=== PATIENT | male | born 1990 | race Caucasian/White ===

== ENCOUNTER 2016-09-27 15:46 | Emergency (ER) | payer OTHER ==
[~2016-09-27] VITALS: Ht 185.4 cm; Wt 89.4 kg
[2016-09-27 15:49] VITALS: TEMP 36.7; Ht 185.4 cm; Wt 89.4 kg
--- NOTE | 2016-09-27 17:09 | EMERGENCY ROOM VISIT NOTE ---
History Report prepared by Isa: Marilin Garcia Under the Supervision of: Dr. Jd Ortiz D.O. First contact with patient: 16:45 Chief Complaint: SHORTNESS OF BREATH Stated Complaint: HISTORY OF PNEUMOTHORAX Nursing Triage Summary: pt here for partial collapsed lung on right side has enlarged came from dr sahni office. having pain with breathing. hurts in chest and back when takes breath. coughed up blood a couple times. fell 3 stories last friday . History of Present Illness The patient is a 25 year old male who presents to the Emergency Room with complaints of worsening SOB starting JEWEL SORTER. He fell down 3 stories 1.5 weeks ago and has both lungs partially collapsed. He had a chest tube on his left side. He also suffered multiple fractures to the ribs and face, scapula and pelvis fracture, and C7 fracture. He had some bleeding in his brain. He was discharged from the hospital 2 days ago. His lungs were not completely healed at discharge. He was in the doctor's office today and the Xray showed that his right lung had worsened and was referred to the ED. He reports pain with breathing and back pain. He has some headache and ear pain which he attributes to his injuries. His foot swelling is normal since his fall. He denies any nausea, vomiting, or abdominal pain. He denies any other medical problems or previous surgeries. He admits to alcohol use. He denies any history of smoking. Source of History: patient Onset: JEWEL SORTER Position: other (global) Quality: other (SOB) Timing: worsening Associated Symptoms: + back pain, + headache, No abdominal pain, No nausea, No vomiting Note: Pt reports pain with breathing, ear pain. Review of Systems See HPI for pertinent positives & negatives. A total of 10 systems reviewed and were otherwise negative. Past Medical & Surgical Medical Problems: (1) Alcohol abuse (2) Cannabis Abuse-Unspec Family History No pertinent family history stated. Social History Smoking Status: Never Smoker Alcohol Use: occasionally Drug Use: marijuana Marital Status: single Current/Historical Medications Scheduled Acetaminophen Tab (Tylenol), 650 MG PO Q6 Aspirin (Aspirin), 325 MG PO DAILY Ciprofloxacin/Dexamethasone (Ciprodex 0.3-0.1 %), 4 DROPS OTL BID Docusate Sodium (Docusate Sodium), 1 CAP PO DAILY Gabapentin (Neurontin), 300 MG PO TID Ibuprofen (Advil), 600 MG PO Q6 Polyvinyl Alcohol (Akwa Tears), 2 DROPS OPL Q4 Prednisone (Prednisone), 20 MG PO TAPER UD Sennosides (Senokot), 1 TAB PO DAILY [Lubrifresh Pm], 0.25 INCH OPL HS Scheduled PRN Oxycodone Ir (Roxicodone Ir), 1-2 TAB PO Q4H PRN for Severe Pain Allergies Coded Allergies: No Known Allergies (Unverified , 03/16/11) Physical Exam Vital Signs Date Time Temp Pulse Resp B/P Pulse Ox O2 Delivery O2 Flow Rate FiO2 09/27/16 18:09 84 16 138/70 96 Room Air 09/27/16 15:49 36.7 68 18 121/70 98 Room Air Physical Exam GENERAL: Patient is awake, alert, and in no acute distress. Patient is resting comfortably and showing no signs of anxiety EYES: The conjunctivae are clear. The pupils are round and reactive. EARS, NOSE, MOUTH AND THROAT: The nose is without any evidence of any deformity. Mucous membranes are moist tongue is midline. Right TM is clear, left TM appears darkened with possible hemotympanum noted. NECK: The neck is nontender and supple. RESPIRATORY: Normal respiratory effort is noted there is no evidence of wheezing rhonchi or rales CARDIOVASCULAR: Regular rate and rhythm noted there no murmurs rubs or gallops normal S1 normal S2 GASTROINTESTINAL: The abdomen is soft. Bowel sounds are present in all quadrants. Abdomen is nontender BACK: No midline tenderness or or step-off noted range of motion in flexion extension as well as rotation no signs of muscle spasm noted MUSCULOSKELETAL/EXTREMITIES: There is no evidence of gross deformity full range of motion is noted in the hips and shoulders SKIN: There is no obvious evidence of any rash. There are no petechiae, pallor or cyanosis noted. NEUROLOGIC: Patient is awake alert and oriented x3 strength is symmetric patellar reflexes are 2+ bilaterally, left facial droop noted involving the forehead. Medical Decision & Procedures Laboratory Results 09/27/16 17:54 Red Blood Count 3.57, Mean Corpuscular Volume 90.2, Mean Corpuscular Hemoglobin 30.5, Mean Corpuscular Hemoglobin Concent 33.9, Mean Platelet Volume 8.8, Neutrophils (%) (Auto) 77.8, Lymphocytes (%) (Auto) 8.9, Monocytes (%) (Auto) 7.1, Eosinophils (%) (Auto) 0.8, Basophils (%) (Auto) 0.2, Neutrophils # (Auto) 10.13, Lymphocytes # (Auto) 1.16, Monocytes # (Auto) 0.93, Eosinophils # (Auto) 0.11, Basophils # (Auto) 0.02 09/27/16 17:54 Test 09/27/16 00:00 09/27/16 17:54 Urine Color YELLOW Urine Appearance CLEAR (CLEAR) Urine pH 6.5 (4.5-7.5) Urine Specific [place] 1.017 (1.000-1.030) Urine Protein NEG (NEG) Urine Glucose (UA) NEG (NEG) Urine Ketones NEG (NEG) Urine Occult Blood NEG (NEG) Urine Nitrite NEG (NEG) Urine Bilirubin NEG (NEG) Urine Urobilinogen NEG (NEG) Urine Leukocyte Esterase NEG (NEG) White Blood Count 13.03 K/uL (4.8-10.8) Red Blood Count 3.57 M/uL (4.7-6.1) Hemoglobin 10.9 g/dL (14.0-18.0) Hematocrit 32.2 % (42-52) Mean Corpuscular Volume 90.2 fL (80-100) Mean Corpuscular Hemoglobin 30.5 pg (25-34) Mean Corpuscular Hemoglobin Concent 33.9 g/dl (32-36) Platelet Count 305 K/uL (130-400) Mean Platelet Volume 8.8 fL (7.4-10.4) Neutrophils (%) (Auto) 77.8 % Lymphocytes (%) (Auto) 8.9 % Monocytes (%) (Auto) 7.1 % Eosinophils (%) (Auto) 0.8 % Basophils (%) (Auto) 0.2 % Neutrophils # (Auto) 10.13 K/uL (1.4-6.5) Lymphocytes # (Auto) 1.16 K/uL (1.2-3.4) Monocytes # (Auto) 0.93 K/uL (0.11-0.59) Eosinophils # (Auto) 0.11 K/uL (0-0.5) Basophils # (Auto) 0.02 K/uL (0-0.2) RDW Standard Deviation 48.9 fL (36.4-46.3) RDW Coefficient of Variation 15.0 % (11.5-14.5) Immature Granulocyte % (Auto) 5.2 % Immature Granulocyte # (Auto) 0.68 K/uL (0.00-0.02) Prothrombin Time 10.4 SECONDS (9.0-12.0) Prothromb Time International Ratio 1.0 (0.9-1.1) Activated Partial Thromboplast Time 27.5 SECONDS (21.0-31.0) Partial Thromboplastin Ratio 1.1 Anion Gap 8.0 mmol/L (3-11) Est Creatinine Clear Calc Drug Dose 145.0 ml/min Estimated GFR () 138.4 Estimated GFR (Non- 119.4 BUN/Creatinine Ratio 27.1 (10-20) Calcium Level 8.7 mg/dl (8.5-10.1) Total Bilirubin 0.4 mg/dl (0.2-1) Direct Bilirubin 0.1 mg/dl (0-0.2) Aspartate Amino Transf (AST/SGOT) 66 U/L (15-37) Alanine Aminotransferase (ALT/SGPT) 176 U/L (12-78) Alkaline Phosphatase 91 U/L (45-117) Total Protein 6.9 gm/dl (6.4-8.2) Albumin 3.3 gm/dl (3.4-5.0) Lipase 72 U/L (73-393) Laboratory results per my review. ED Course 1645: The patient was evaluated in room A4B. A complete history and physical examination were performed. 1729: I discussed the patient's case [place]. [place] [facility] [place] He will evaluate the patient. 1744: I reevaluated the patient. I updated him and his family on the plan. Dr. Olivo will evaluate the patient. 1756: Dr. Olivo has evaluated the patient. He believes the patient can be discharged home. 1804: Upon reevaluation, the patient is doing well. I discussed the results and treatment plan with him and his family. They verbalized agreement of the treatment plan. He was discharged home. Medical Decision Prior records/ancillary studies reviewed. Triage Nursing notes reviewed. Additional history obtained from the family. The patient's history was concerning for respiratory difficulties. Differential diagnosis: Etiologies such as infections, reactive airway disease, pneumonia, pneumothorax , COPD, CHF, cardiac ischemia, pulmonary embolism, musculoskeletal, gastrointestinal, as well as others were entertained. The patient is a 25-year-old male who presented to the emergency department with his parents for an evaluation of pneumothorax. The patient was seen at a trauma center in [place] approximate 10 days ago after a fall from a third story balcony. The patient suffered multiple traumatic injuries including intracranial bleeding as well as skull fracture facial nerve palsy traumatic pneumothorax and other bony injuries. The patient follow-up with his primary care physician today and had a chest x-ray which did reveal persistent pneumothorax bilaterally. His primary care physician was concerned because the a slight increase in the size of the pneumothorax compared to his discharge x- rays. He was sent to the emergency apartment for further evaluation. The patient 's vital signs reviewed. He did not have hypoxia. The patient was evaluated in the emergency department by the on-call cardiothoracic surgeon. At this time I feel the patient can safely follow up as an outpatient next week. At that time he will likely require repeat chest x-ray to ensure the pneumothorax is resolving. He was advised to limit traveling. He was also encouraged to follow- up with his primary care physician as well as the cardiothoracic surgery scheduled. He was also encouraged to return to the emergency department immediately if symptoms change worsen or the need arises. Consults Time Called: 171 Consulting Physician: Dr. Olivo, [facility] [place] Returned Call: [phone] I discussed the patient's case with him. He will evaluate the patient. Impression Primary Impression: Traumatic pneumothorax Scribe Attestation The scribe's documentation has been prepared under my direction and personally reviewed by me in its entirety. I confirm that the note above accurately reflects all work, treatment, procedures, and medical decision making performed by me. Departure Information Dispostion Home / Self-Care Referrals Shahid Sahni D.O.Int.Arik. Charlie Olivo MD Forms HOME CARE DOCUMENTATION FORM, IMPORTANT VISIT INFORMATION Patient Instructions My [facility], Pneumothorax Additional Instructions Continue all medications as prescribed. Rest and avoid any strenuous activity. Follow-up with the cardiothoracic surgeon next Friday as scheduled. Return to the emergency department immediately if symptoms change worsen or the need arises. Problem Qualifiers Primary Impression: Traumatic pneumothorax Encounter type: subsequent encounter Qualified Codes: S27.0XXD - Traumatic pneumothorax, subsequent encounter
[2016-09-27] MEDS ORDERED: ASPI325T45 PO (17:24)
[2016-09-27] MEDS ORDERED: GABA-113 PO (17:24)
[2016-09-27] MEDS ORDERED: PRED20TA PO (17:24)
[2016-09-27] MEDS ORDERED: IBUP-1050 PO (17:24)
[2016-09-27] MEDS ORDERED: SENN-63 PO (17:24)
[2016-09-27] MEDS ORDERED: DOCU100C31 PO (17:24)
[2016-09-27] MEDS ORDERED: CPRDOTS OTL (17:24)
[2016-09-27] MEDS ORDERED: LUBRIFRESH PM OPL (17:24)
[2016-09-27] MEDS ORDERED: OXYC1TAB3 PO (17:24)
[2016-09-27] MEDS ORDERED: ACET325T96 PO (17:24)
[2016-09-27] MEDS ORDERED: POLYSOL OPL (17:24)
[2016-09-27 18:05] LABS: HEMATOCRIT 32.2 % (42-52); MEAN CELL VOLUME 90.2 fL (80-100); MEAN CORPUSCULAR HEMOGLOBIN 30.5 pg (25-34); MEAN CORPUSCULAR HGB CONC 33.9 g/dl (32-36); MEAN PLATELET VOLUME 8.8 fL (7.4-10.4); PLATELET COUNT 305 K/uL (130-400); RED BLOOD COUNT 3.57 M/uL (4.7-6.1); WHITE BLOOD COUNT 13.03 K/uL (4.8-10.8)
[2016-09-27 18:09] VITALS: BP 138/70; PULSE 84; O2SAT 96
[2016-09-27 18:14] LABS: PARTIAL THROMBOPLASTIN RATIO 1.1; PROTHROMBIN TIME (PATIENT) 10.4 SECONDS (9.0-12.0)
[2016-09-27 18:26] LABS: BUN/CREATININE RATIO 27.1 (10-20); CALCIUM 8.7 mg/dl (8.5-10.1); CREATININE 0.88 mg/dl (0.60-1.40); POTASSIUM 4.5 mmol/L (3.5-5.1)
[2016-09-27 18:28] LABS: BASO % 0.2 %; BASO ABS # 0.02 K/uL (0-0.2); COMPLETE YES; EOS % 0.8 %; IG% 5.2 %; LYMPH % 8.9 %; LYMPH ABS # 1.16 K/uL (1.2-3.4); MONO % 7.1 %; NEUT % 77.8 %
[2016-09-27 18:39] LABS: URINE APPEARANCE CLEAR (CLEAR); URINE BILIRUBIN NEG (NEG); URINE COLOR YELLOW; URINE NITRITE NEG (NEG); URINE PH 6.5 (4.5-7.5); URINE SPECIFIC GRAVITY 1.017 (1.000-1.030); UROBILINOGEN NEG (NEG)
[2016-09-27 18:42] LABS: MANUAL MICROSCOPIC REQUIRED? NO; REVIEW REQ? NO
--- NOTE | 2016-09-28 02:48 | SURGICAL CONSULTATION ---
DATE OF CONSULTATION: 09/27/2016 HISTORY OF PRESENT ILLNESS: Mr. Abraham is a 25-year-old male who fell out of a third sawyer balcony about 10 days ago down in [place], [place]. He had no other medical problems except that he does drink and does use marijuana on occasion. He suffered a small subarachnoid hemorrhage. He also broke his temporal bone and has a facial nerve palsy on the left. His parents just picked him up in [place] yesterday and drove him home and got back last night. His mother was concerned about him because she wanted him to see a physician for continuity of care and he was taken to see Dr. Shahid Sahni, today. He had had a chest tube for some rib fractures and also had a C7 fracture. As he had a pneumothorax, it was elected to send him over to the Emergency Room. He denies shortness of breath, per se. His pulse oximetry is 98% on room air. He does have some headaches and some left ear pain. He also had some left foot swelling, but he says that it is fine but it appeared to be bilateral trace edema. PAST MEDICAL HISTORY: 1. Alcohol use. 2. Marijuana use. 3. Does not smoke cigarettes. PAST SURGICAL HISTORY: None. ALLERGIES TO MEDICATIONS: None. ALLERGIES: No known drug allergies. SOCIAL HISTORY: The patient's parents live here in [place], [place]. He actually spent the majority of his youth in [facility] and graduated from high school there. He did not apparently attend college. 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 FAMILY MEDICAL HISTORY: His parents are healthy. REVIEW OF SYSTEMS: The patient does have headaches on occasion. He has had some mild edema. He denies shortness of breath and has had no dyspnea, although he does have pain if he takes a deep breath and has some back pain. He had C7 fracture, pelvis fracture and had fractures of his ribs as well as his left temporal bone. He has had no other skin breakdown. He has had no visual problems. He does have ear pain but no decrease in hearing acuity. He denied nausea, vomiting and hematuria. PHYSICAL EXAMINATION: GENERAL: This is a well-developed, well-nourished male who stands 6 feet 1 inches tall and weighs 197 pounds. He is awake and alert. HEENT: He does have an obvious left facial paralysis. His pupils are equally round. He has no icterus. His tongue is midline. His oral mucosa is moist. NECK: Supple. He really does not have much tenderness, although I did not have him too much for range of motion. He has had no adenopathy. His breath sounds are actually pretty good on both sides. He has some tenderness but no real crepitus. VITAL SIGNS: As stated, his vital signs are stable with a pulse rate in the 60s, respiration rate in the teens and a pulse oximetry of 98% on room air. I reviewed his chest x-ray and indeed he does have a small pneumothorax on the left with a small effusion. On the right, he does have a larger pneumothorax, but really he had had a chest tube on the left, so I am really not concerned about that and quite frankly I am not very concerned about the size of the pneumothorax on the right either. The patient is very stable. I told his parents to call me over the weekend should any problems arise. I think he is going to heal this on his own. He has had no clinical changes quite frankly within the last several days. I will see him back with a chest x-ray on 10/01/2016. I have instructed his parents to call me should a problem arise. BERNABE
== END 2016-09-27 18:50 | disposition home or self-care (01) ==
LOC: C.EDB 15:48 → C.EDA 18:50
DX: S27.0XXD Traumatic pneumothorax, subsequent encounter (principal); W17.89XD Other fall from one level to another, subsequent encounter; F12.10 Cannabis abuse, uncomplicated; Z79.82 Long term (current) use of aspirin; Z79.899 Other long term (current) drug therapy

== ENCOUNTER → 2016-09-27 | Outpatient (CLI) | payer OTHER ==
[~2016-09-27] MED LIST: ACET325T96 PO; ASPI325T45 PO; CPRDOTS OTL; DOCU100C31 PO; GABA-113 PO; IBUP-1050 PO; LUBRIFRESH PM OPL; OXYC1TAB3 PO; POLYSOL OPL; PRED20TA PO; SENN-63 PO
--- NOTE | 2016-09-27 14:48 | DIAGNOSTIC IMAGING REPORT ---
TWO VIEW CHEST CLINICAL HISTORY: Pneumothorax. FINDINGS: PA and lateral chest radiographs are obtained. No prior studies are available for comparison at the time of dictation. The cardiomediastinal silhouette is unremarkable. There is a small to moderate right apical pneumothorax with at least 3 cm of apical pleural separation. A trace left apical pneumothorax is also seen with approximately 1 cm of apical pleural separation. There is a distracted right first rib fracture. The remainder of the bony thorax is grossly intact. IMPRESSION: 1. Small to moderate right and trace left apical pneumothoraces. 2. Small left pleural effusion. 3. There is a distracted right first rib fracture. Findings were discussed with physician Asst. Gold at the time of interpretation on 09/27/2016. Electronically signed by: Ronan Christian M.D. 09/27/2016 2:47 PM Dictated Date/Time: 09/27/2016 2:15 PM
== END | disposition home or self-care (01) ==
LOC: C.RADBC 13:33
PROVIDERS: ATTEND Physician Assistant
DX: J93.9 Pneumothorax, unspecified (principal); S22.31XA Fracture of one rib, right side, initial encounter for closed fracture; X58.XXXA Exposure to other specified factors, initial encounter

== ENCOUNTER → 2016-10-01 | Outpatient (CLI) | payer OTHER ==
--- NOTE | 2016-10-01 09:14 | DIAGNOSTIC IMAGING REPORT ---
CHEST 2 VIEWS ROUTINE CLINICAL HISTORY: Pneumothorax INSPIRATORY PAIN COMPARISON STUDY: 09/27/2016 FINDINGS: The cardiac and mediastinal contours remain stable. No pneumothorax is visualized. There is an area of linear scar/atelectasis at the left lung base. No pneumothorax is visualized. There is an old fracture the right first rib.[ There is no failure. There is no focal pulmonary consolidation. There are no pleural effusions. IMPRESSION: No active disease in the chest. Electronically signed by: Johnie Otero M.D. 10/01/2016 9:13 AM Dictated Date/Time: 10/01/2016 9:11 AM
== END | disposition home or self-care (01) ==
LOC: C.RAD 08:45
PROVIDERS: ATTEND Surgery
DX: J93.9 Pneumothorax, unspecified (principal)

== ENCOUNTER → 2016-12-20 | Outpatient (CLI) | payer OTHER ==
--- NOTE | 2016-12-20 17:27 | DIAGNOSTIC IMAGING REPORT ---
ULTRASOUND LEFT UPPER EXTREMITY VENOUS CLINICAL HISTORY: Left arm pain. Palpable lump. COMPARISON STUDY: No priors. TECHNIQUE: Real-time, grayscale, and color Doppler sonography of the deep veins of the left upper extremity is performed. Compression and augmentation were utilized. FINDINGS: There is no sonographic evidence of deep venous thrombosis identified in the left upper extremity. The left internal jugular, axillary, and brachial veins are patent and normally compressible. Normal venous waveforms and augmentation are seen within the left subclavian vein. The visualized radial and ulnar veins are patent. Superficial venous thrombus is seen within the cephalic and basilic veins. IMPRESSION: 1. There is no sonographic evidence of deep venous thrombosis identified in the left upper extremity. 2. Nearly occlusive superficial venous thrombus is seen within the cephalic and basilic veins. Electronically signed by: Ronan Christian M.D. 12/20/2016 5:26 PM Dictated Date/Time: 12/20/2016 5:24 PM
== END | disposition home or self-care (01) ==
LOC: C.ULTR 16:56
PROVIDERS: ATTEND Physician Assistant
DX: R22.32 Localized swelling, mass and lump, left upper limb (principal)

== ENCOUNTER → 2017-01-03 | Outpatient (CLI) | payer OTHER ==
--- NOTE | 2017-01-03 13:53 | DIAGNOSTIC IMAGING REPORT ---
LEFT UPPER EXTREMITY VENOUS DOPPLER ULTRASOUND CLINICAL HISTORY: Left upper extremity superficial clot. COMPARISON STUDY: Left upper extremity venous Doppler December 20, 2016. FINDINGS: The left internal jugular, subclavian, axillary, basilic, brachial, radial and ulnar veins are patent. Note is again made of thrombus within the left basilic and cephalic veins which is similar in appearance to exam of December 20, 2016. IMPRESSION: 1. No significant change in superficial thrombus within the left basilic and cephalic veins since exam of December 20, 2016. 2. No deep venous thrombus within the left upper extremity. Electronically signed by: Domenico Zayas M.D. 01/03/2017 1:52 PM Dictated Date/Time: 01/03/2017 1:50 PM
== END | disposition home or self-care (01) ==
LOC: C.ULTRBC 12:58
PROVIDERS: ATTEND Physician Assistant
DX: I82.90 Acute embolism and thrombosis of unspecified vein (principal)

== ENCOUNTER → 2017-01-17 | Outpatient (CLI) | payer OTHER ==
[~2017-01-17] MED LIST changes: +OPTIRAY 320 IV PRN
--- NOTE | 2017-01-17 15:57 | DIAGNOSTIC IMAGING REPORT ---
(CHEST FOR PE) ANGIO WITH CLINICAL HISTORY: 26 years-old Male presenting with chest pain, clinical concern for pulmonary embolus, nearly occlusive superficial venous thrombosis within the cephalic and basilic veins of the left upper extremity. TECHNIQUE: Multidetector CT angiography of the chest was performed after administration of intravenous contrast. 3-D volumetric and/or maximum intensity projection (MIP) images were subsequently reconstructed for review. IV contrast: 94 mL of Optiray 320. A dose lowering technique was used consistent with the principles of ALARA (as low as reasonably achievable). COMPARISON: None. CT DOSE (mGy.cm): The estimated cumulative dose is 354.74 mGy.cm. FINDINGS: Access Tech topogram: Unremarkable. Pulmonary vasculature: The study is adequate for assessment of the pulmonary vascular tree. No filling defect within the pulmonary arteries to suggest embolus. Main pulmonary artery is not enlarged. No flattening of the interventricular septum. No intracardiac intracardiac filling defect. Reflux of contrast into the hepatic veins suggests elevated right heart pressures. Remaining chest: On soft tissue windows, normal thyroid and thoracic inlet. Prominent residual thymic tissue noted in the anterior mediastinum. No axillary, supraclavicular, hilar, or mediastinal lymphadenopathy. Normal aorta. Normal heart size. No pericardial or pleural effusion. Upper abdomen normal. On lung windows, no focal infiltrate or nodule. Airways patent. On bone windows, normal osseous structures. IMPRESSION: 1. No evidence of pulmonary embolus. No acute intrathoracic pathology. 2. Reflux of contrast into the hepatic veins could suggest elevated right heart pressures. Electronically signed by: Vinny Davis M.D. 01/17/2017 3:56 PM Dictated Date/Time: 01/17/2017 3:49 PM
== END | disposition home or self-care (01) ==
LOC: C.CTS 15:22
PROVIDERS: ATTEND Physician Assistant
DX: R07.9 Chest pain, unspecified (principal)